=== PATIENT | male | born 1985 | race Hispanic/Latino ===

== ENCOUNTER 2017-09-21 21:33 | Emergency (ER) | payer SELFPAY ==
[2017-09-21] MEDS ORDERED: FENTANYL CITR 100 MCG/2 ML ONE (21:54)
[2017-09-21] MEDS ORDERED: DIAZEPAM 10 MG/2 ML INJ SYRINGE ONE (21:55)
[2017-09-21] MEDS ORDERED: FAMOTIDINE 20 MG/2 ML VIAL IV ONE (21:56)
--- NOTE | 2017-09-21 23:10 | ER ---
Nurse's Notes [facility] Name: Reza Valente Age: 31 yrs Sex: Male : 1985 Arrival Date: 09/21/2017 Time: 21:38 Bed 3 Private MD: Diagnosis: Displaced fracture of medial malleolus of right tibia;Displaced fracture of lateral malleolus of right fibula;Dislocation of right ankle joint-reduced Presentation: 09/21 21:30 Presenting complaint: EMS states: that pt was playing soccer and stepped in a hole. He fc has obvious dislocation of right ankle. Transition of care: patient was not received from another setting of care. Onset of symptoms was September 21, 2017 at 21:00. Care prior to arrival: Splint applied. Medication(s) given: zofran 4 mg, Fentanyl 100 mcg ivp IV initiated. 18 GA, in the right antecubital area. 21:30 Method Of Arrival: EMS: [facility] fc 21:30 Acuity: [place] 2 fc - Immunization history:: Last tetanus immunization: unknown. - Social history:: Smoking status: Patient/guardian denies using tobacco, Patient uses alcohol, occasionally. Patient/guardian denies using street drugs. Screenin:41 Abuse screen: Denies threats or abuse. Nutritional screening: No deficits noted. fc Tuberculosis screening: No symptoms or risk factors identified. Fall Risk Fall in past 12 months (25 points). No secondary diagnosis (0 pts). IV access (20 points). Ambulatory Aid- None/Bed Rest/Nurse Assist (0 pts). Gait- Normal/Bed Rest/Wheelchair (0 pts) Mental Status- Overestimates/Forgets Limitations (15 pts.). Total Jones Fall Scale indicates High Risk Score (45 or more points). Fall prevention measures have been instituted. Side Rails Up X 2 Placed Close to Nursing Station Frequent Obs/Assessments Occuring As available patient and family educated on Fall Prevention Program and Strategies. Assessment: 21:30 General: Appears uncomfortable, Behavior is calm, cooperative. Pain: Complains of pain ea in right ankle Pain currently is 10 out of 10 on a pain scale. Neuro: Level of Consciousness is awake, alert, obeys commands, Oriented to person, place, time, situation. Cardiovascular: Patient's skin is warm and dry. Respiratory: Airway is patent Respiratory effort is even, unlabored, Respiratory pattern is regular, symmetrical. GI: No signs and/or symptoms were reported involving the gastrointestinal system. : No signs and/or symptoms were reported regarding the genitourinary system. EENT: No signs and/or symptoms were reported regarding the EENT system. Derm: Skin is dry, Skin temperature is warm. Musculoskeletal: Bony deformity noted of right ankle. Injury Description: Deformity sustained to right ankle. 22:32 Reassessment: Patient and/or family updated on plan of care and expected duration. Pain ea level reassessed. Patient is alert, oriented x 3, equal unlabored respirations, skin warm/dry/pink. family at bedside. Patient states feeling better. 23:05 Reassessment: Patient and/or family updated on plan of care and expected duration. Pain ea level reassessed. Patient is alert, oriented x 3, equal unlabored respirations, skin warm/dry/pink. Discharge instruction given to patient, verbalized the understanding of instruction. Vital Signs: 21:30 BP 163 / 100; Pulse 108; Resp 20; Temp 98.2(O); Pulse Ox 99% on R/A; Weight 79.38 kg fc (R); Height 5 ft. 6 in. (167.64 cm) (R); Pain 10/10; 21:37 BP 137 / 95; Pulse 95; Resp 16; Pulse Ox 96% on R/A; bb 22:33 BP 134 / 84; Pulse 80; Resp 18 S; Pulse Ox 99% on R/A; Pain 4/10; ea 22:55 BP 145 / 92; Pulse 82; Resp 18 S; Temp 98.1(O); Pulse Ox 99% on R/A; Pain 7/10; ea 21:30 Body Mass Index 28.25 (79.38 kg, 167.64 cm) ED Course: 21:30 Arm band placed on Patient placed in an exam room, on a stretcher. 21:30 Patient has correct armband on for positive identification. Bed in low position. Call light in reach. Side rails up X2. 21:30 Maintain EMS IV. Dressing intact. Good blood return noted. Site clean \T\ dry. Gauge \T\ site: 18 gauge to right a/c. 21:38 Patient arrived in ED. fc 21:40 Triage completed. fc 21:46 [facility] Black [facility]C [facility] rg2 22:04 Lucía Harris, BC is Primary Nurse. ea 22:04 Orthoglass splint: Posterior long leg splint applied on right leg. stirrup splint oe applied on. 22:16 Tib Fib Right XRAY In Process Unspecified. EDMS 22:16 Ankle Right 3 View XRAY In Process Unspecified. EDMS 22:28 Kofi Delgadillo MD is Referral Physician. snw 22:33 Shin Hernandez MD is Attending Physician. snw 22:36 No provider procedures requiring assistance completed. ea 23:08 IV discontinued, intact, bleeding controlled, No redness/swelling at site. Pressure ea dressing applied. Administered Medications: 21:34 Drug: fentaNYL (PF) 50 mcg Route: IVP; Site: right antecubital; bb 22:34 Follow up: Response: No adverse reaction; Marked relief of symptoms ea 21:35 Drug: Valium 10 mg Route: IVP; Site: right antecubital; bb 22:34 Follow up: Response: No adverse reaction; Marked relief of symptoms ea 22:54 Drug: morphine 10 IM 10 mg Route: IM; Site: left deltoid; ea 23:10 Follow up: Response: No adverse reaction; Medication administered at discharge. ea 22:58 CANCELLED (Duplicate Order): morphine 10 mg IM once snw Outcome: 22:32 Discharge ordered by . snw 23:07 Discharged to home via wheelchair, with family. ea 23:07 Condition: improved 23:07 Discharge instructions given to patient, family, Instructed on discharge instructions, follow up and referral plans. medication usage, Demonstrated understanding of instructions, follow-up care, medications, Prescriptions given X 2. 23:10 Patient left the ED. ea Signatures: Dispatcher [employer] EDMS Johnathan Portillo rg2 Cassy Black FNP-C BEEF GRINDER-Csnw Trinity Rice RN RN fc Bekah Aguilar RN RN bb Lucius Mai Elena, RN RN ea Corrections: (The following items were deleted from the chart) 23:05 23:04 morphine 10 IM 10 mg IM in left deltoid ea ea
--- NOTE | 2017-09-21 23:10 | EDPHYS ---
Physician Documentation [facility] Name: Reza Valente Age: 31 yrs Sex: Male : 1985 Arrival Date: 09/21/2017 Time: 21:38 Bed 3 Private MD: ED Physician Shin Hernandez HPI: 09/21 22:55 This 31 yrs old Male presents to ER via EMS with complaints of Leg Injury. snw 22:55 The patient presents with decreased range of motion, a deformity, an injury, pain, snw swelling. The complaints affect the right ankle. Context: The problem was sustained at a sports field or court, resulted from playing sports, soccer, stepping in a hole while running. Onset: The symptoms/episode began/occurred suddenly, just prior to arrival. Associated signs and symptoms: Pertinent positives: numbness. Treatment prior to arrival includes: splinting the affected extremity, fentanyl 100mcg iv. Severity of symptoms: At their worst the symptoms were severe. The patient has not experienced similar symptoms in the past. It is unknown whether or not the patient has recently seen a physician. - Immunization history:: Last tetanus immunization: unknown. - Social history:: Smoking status: Patient/guardian denies using tobacco, Patient uses alcohol, occasionally. Patient/guardian denies using street drugs. ROS: 22:46 Constitutional: Negative for fever, chills, and weight loss, Eyes: Negative for injury, snw pain, redness, and discharge, ENT: Negative for injury, pain, and discharge, Neck: Negative for injury, pain, and swelling, Cardiovascular: Negative for chest pain, palpitations, and edema, Respiratory: Negative for shortness of breath, cough, wheezing, and pleuritic chest pain, Abdomen/GI: Negative for abdominal pain, nausea, vomiting, diarrhea, and constipation, Back: Negative for injury and pain, : Negative for injury, bleeding, discharge, and swelling, Skin: Negative for injury, rash, and discoloration, Neuro: Negative for headache, weakness, numbness, tingling, and seizure. 22:46 MS/extremity: Positive for injury or acute deformity, decreased range of motion, deformity, pain, of the right ankle. Exam: 22:47 Head/Face: Normocephalic, atraumatic. Eyes: Pupils equal round and reactive to light, snw extra-ocular motions intact. Lids and lashes normal. Conjunctiva and sclera are non-icteric and not injected. Cornea within normal limits. Periorbital areas with no swelling, redness, or edema. ENT: Nares patent. No nasal discharge, no septal abnormalities noted. Tympanic membranes are normal and external auditory canals are clear. Oropharynx with no redness, swelling, or masses, exudates, or evidence of obstruction, uvula midline. Mucous membranes moist. Neck: Trachea midline, no thyromegaly or masses palpated, and no cervical lymphadenopathy. Supple, full range of motion without nuchal rigidity, or vertebral point tenderness. No Meningismus. Chest/axilla: Normal chest wall appearance and motion. Nontender with no deformity. No lesions are appreciated. Cardiovascular: Regular rate and rhythm with a normal S1 and S2. No gallops, murmurs, or rubs. Normal PMI, no JVD. No pulse deficits. Respiratory: Lungs have equal breath sounds bilaterally, clear to auscultation and percussion. No rales, rhonchi or wheezes noted. No increased work of breathing, no retractions or nasal flaring. Abdomen/GI: Soft, non-tender, with normal bowel sounds. No distension or tympany. No guarding or rebound. No evidence of tenderness throughout. Back: No spinal tenderness. No costovertebral tenderness. Full range of motion. Skin: Warm, dry with normal turgor. Normal color with no rashes, no lesions, and no evidence of cellulitis. Neuro: Awake and alert, GCS 15, oriented to person, place, time, and situation. Cranial nerves II-XII grossly intact. Motor strength 5/5 in all extremities. Sensory grossly intact. Cerebellar exam normal. Normal gait. Psych: Awake, alert, with orientation to person, place and time. Behavior, mood, and affect are within normal limits. 22:47 Constitutional: The patient appears alert, awake, anxious. 22:47 Musculoskeletal/extremity: Extremities: grossly normal except: noted in the right ankle: decreased ROM, deformity, tenderness, distal pulse not readily palpable, skin stretched at medial right ankle with bone close to skin, no overlying skin defect or blistering, EMS splint removed, all socks/supports/shoes removed on EMS stretcher, knee flexed and ankle reduced by me with traction and manipulation/rotation x 45 degree. Foot/ankle with normal alignment, distal pulses + and normal, foot warm, pink, pt moving toes. Manual traction maintained until long leg splint applied, stirrup placed. NVS normal post splint, Circulation is intact in all extremities. Vital Signs: 21:30 BP 163 / 100; Pulse 108; Resp 20; Temp 98.2(O); Pulse Ox 99% on R/A; Weight 79.38 kg fc (R); Height 5 ft. 6 in. (167.64 cm) (R); Pain 10/10; 21:37 BP 137 / 95; Pulse 95; Resp 16; Pulse Ox 96% on R/A; bb 22:33 BP 134 / 84; Pulse 80; Resp 18 S; Pulse Ox 99% on R/A; Pain 4/10; ea 22:55 BP 145 / 92; Pulse 82; Resp 18 S; Temp 98.1(O); Pulse Ox 99% on R/A; Pain 7/10; ea 21:30 Body Mass Index 28.25 (79.38 kg, 167.64 cm) Procedures: 21:58 Splinting: Splint applied to right leg using Scotchcast applied by [employer]. Examined by snw me, post splint application: neurovascular intact, 2+ distal pulses palpable, brisk capillary refill noted. Reduction: of the right ankle, using manipulation, rotation 45 degrees, Patient tolerated well. MDM: 21:57 Patient medically screened. snw 22:55 Data reviewed: vital signs, nurses notes. Data interpreted: Pulse oximetry: on room air snw is 99 %. Interpretation: normal. Counseling: I had a detailed discussion with the patient and/or guardian regarding: the historical points, exam findings, and any diagnostic results supporting the discharge/admit diagnosis, the presence of at least one elevated blood pressure reading (>120/80) during this emergency department visit, radiology results, the need for outpatient follow up, to return to the emergency department if symptoms worsen or persist or if there are any questions or concerns that arise at home. Special discussion: I have referred the patient to see his PCP for further evaluation of high blood pressure. Based on the history and exam findings, there is no indication for further emergent testing or inpatient evaluation. I discussed with the patient/guardian the need to see the orthopedic surgeon for further evaluation of the symptoms. I discussed with the patient/guardian the need to see the primary care provider for further evaluation of the symptoms. 09/21 21:58 Order name: Tib Fib Right XRAY snw 09/21 21:58 Order name: Ankle Right 3 View XRAY snw 09/21 21:58 Order name: Posterior Leg Splint: with stirrup; Complete Time: 22:03 snw 09/21 22:46 Order name: Crutches; Complete Time: 23:05 snw 09/21 22:46 Order name: Crutch Training; Complete Time: 23:05 snw Administered Medications: 21:34 Drug: fentaNYL (PF) 50 mcg Route: IVP; Site: right antecubital; bb 22:34 Follow up: Response: No adverse reaction; Marked relief of symptoms ea 21:35 Drug: Valium 10 mg Route: IVP; Site: right antecubital; bb 22:34 Follow up: Response: No adverse reaction; Marked relief of symptoms ea 22:54 Drug: morphine 10 IM 10 mg Route: IM; Site: left deltoid; ea 23:10 Follow up: Response: No adverse reaction; Medication administered at discharge. ea 22:58 CANCELLED (Duplicate Order): morphine 10 mg IM once snw Disposition: 23:19 Co-signature as Attending Physician, Shin Hernandez MD. rn Disposition: 09/21/17 22:32 Discharged to Home. Impression: Displaced fracture of medial malleolus of right tibia, Displaced fracture of lateral malleolus of right fibula, Dislocation of right ankle joint - reduced. - Condition is Stable. - Discharge Instructions: Ankle Dislocation, Ankle Fracture, Cast or Splint Care, Crutch Use, Cryotherapy. - Prescriptions for Tylenol- Codeine #3 300-30 mg Oral Tablet - take 2 tablet by ORAL route every 6 hours As needed; 30 tablet. orphenadrine citrate 100 mg Oral Tablet Sustained Release - take 1 tablet by ORAL route 2 times per day As needed; 20 tablet. - Medication Reconciliation Form, Thank You Letter, Antibiotic Education, Prescription Opioid Use form. - Follow up: Emergency Department; When: As needed; Reason: Worsening of condition. Follow up: Kofi Delgadillo MD; When: 1 - 2 days; Reason: Recheck today's complaints, Continuance of care. Signatures: Dispatcher [employer] EDCassy Hernandez, LEATHER TACKER-C LEATHER TACKER-Csnw Trinity Rice, RN RN Bekah Gonzales RN RN Shin Castaneda MD MD rn Antunez, Elena, RN RN ea Corrections: (The following items were deleted from the chart) 22:58 22:57 morphine 10 mg IM once ordered. snw snw
[2017-09-21] MEDS ORDERED: MORPHINE 10 MG/ML VIAL ONE (23:12)
--- NOTE | 2017-09-22 08:38 | RAD REPORT ---
EXAM DESCRIPTION: RAD - Tib Fib Right - 09/21/2017 10:15 pm CLINICAL HISTORY: Right leg pain . FINDINGS: No fracture is seen involving the proximal and mid tibia/fibula. Please refer to the ankle x-ray report for ankle findings
--- NOTE | 2017-09-22 08:39 | RAD REPORT ---
EXAM DESCRIPTION: RAD - Ankle Right 3 View - 09/21/2017 10:18 pm CLINICAL HISTORY: Right ankle pain status post fall FINDINGS: A mildly displaced fracture involves the distal fibula. A 28 millimeter avulsion fracture involves the anterior aspect of distal tibia. On the lateral view an oblique lucency overlies the dis nickolas fibula/ tibia. It probably represents the known fibular fracture. An additional posterior tibial fracture is another consideration but probably is less likely No dislocation is seen
== END 2017-09-21 23:10 | disposition home or self-care (01) ==
LOC: ER 21:33
PROC: 2W3LX1Z Immobilization of Right Lower Extremity using Splint (ICD-10-PCS; principal; 2017-09-21)
PROC: 0QSJXZZ Reposition Right Fibula, External Approach (ICD-10-PCS; 2017-09-21)
PROC: 0QSGXZZ Reposition Right Tibia, External Approach (ICD-10-PCS; 2017-09-21)
DX: S82.51XA Displaced fracture of medial malleolus of right tibia, initial encounter for closed fracture (principal); S82.61XA Displaced fracture of lateral malleolus of right fibula, initial encounter for closed fracture; S93.04XA Dislocation of right ankle joint, initial encounter; X58.XXXA Exposure to other specified factors, initial encounter; Y93.66 Activity, soccer; Y92.322 Soccer field as the place of occurrence of the external cause
CPT/HCPCS: 96372; 96374; 96375; 99284; J3010; J3360